=== PATIENT | female | born 1960 | race Caucasian/White ===

== ENCOUNTER 2022-07-13 11:14 | Inpatient (IN) | payer MEDICAID ==
[2022-07-13] MEDS ORDERED: Lactulose Soln 10 GM/15 ML 15 ML UD Cup PO ONE (13:46)
[2022-07-13] MEDS ORDERED: Sodium Chloride 0.9% 1,000 ML IV STA (16:18)
[2022-07-13] MEDS ORDERED: Sodium Chloride 0.9% 10 ML Syringe FLUSH PRN (16:18)
[2022-07-13] MEDS ORDERED: fentaNYL 100 MCG/2 ML SDV IVPUSH ONE (16:21)
[2022-07-13] MEDS ORDERED: Iopamidol 612 MG/ML 100 ML Bottle IV PRN (16:26)
[2022-07-13 16:50] LABS: ESTIMATED GFR 73 mL/min (>60)
[2022-07-13] MEDS: Sodium Chloride 0.9% 100 ML IV SCH ×2 (17:16→19:40)
[2022-07-13] MEDS ORDERED: HYDROmorphone 0.5 MG/0.5 ML Syringe IVPUSH ONE (17:45)
[2022-07-13] MEDS ORDERED: HYDROmorphone 1 MG/ML Syringe IVPUSH ONE (18:37)
[2022-07-13] MEDS ORDERED: Sodium Chloride 0.9% 100 ML IV SCH (19:15)
[2022-07-13] MEDS ORDERED: Iopamidol 755 Mg/ML 100 ML Bottle IV SCH (19:15)
[2022-07-13] MEDS ORDERED: Acetaminophen 325 MG Tab PO PRN (20:10)
[2022-07-13] MEDS ORDERED: oxyCODONE 5 MG Tab PO PRN (20:10)
[2022-07-13] MEDS ORDERED: Enoxaparin 30 MG/0.3 ML Syringe SUBCUT SCH (20:10)
[2022-07-13] MEDS ORDERED: Naloxone 0.4 MG/ML SDV IVPUSH PRN ×2 (20:10→20:23)
[2022-07-13] MEDS ORDERED: Ondansetron 4 MG Tab.DIS PO PRN (20:10)
[2022-07-13] MEDS ORDERED: Bisacodyl 5 MG Tab PO PRN (20:10)
[2022-07-13] MEDS ORDERED: fentaNYL/Normal Saline 600 MCG/30 ML PCA Vial IV PRN (20:10)
[2022-07-13] MEDS ORDERED: Ondansetron 4 MG/2 ML SDV IVPUSH PRN (20:23)
[2022-07-13] MEDS ORDERED: diphenhydrAMINE 50 MG/ML SDV IVPUSH PRN (20:23)
[2022-07-13] MEDS ORDERED: diphenhydrAMINE 25 MG Cap PO PRN (20:23)
[2022-07-13] MEDS: Sodium Chloride 0.9% 1,000 ML IV SCH (20:34)
[2022-07-13] MEDS: HYDROmorphone/Normal Saline 6 MG/30 ML PCA Vial IV PRN (20:56)
[2022-07-13] MEDS ORDERED: Apixaban 5 MG Tab PO SCH (21:00)
[2022-07-13] MEDS ORDERED: Aluminum Hydroxide/Magnesium Hydroxide/Simethicone Susp 30 ML Cup ONE (21:15)
[2022-07-13] MEDS ORDERED: Lidocaine 2% Viscous Solution 15 ML UD ONE (21:16)
[2022-07-13] MEDS ORDERED: diphenhydrAMINE 25 MG/10 ML Cup ONE (21:21)
[2022-07-13] MEDS: Apixaban 5 MG Tab PO SCH (21:49)
[2022-07-13] MEDS: Pantoprazole 40 MG Vial IV SCH (21:51)
[2022-07-13] MEDS: Lidocaine 2% 30 ML, Alum Hydrox/Mag Hydrox/Simeth 30 ML, diphenhydrAMINE 75 MG PO PRN ×3 (21:52)
[2022-07-14] MEDS: Sodium Chloride 0.9% 1,000 ML IV SCH (04:08)
[2022-07-14] MEDS: Pantoprazole 40 MG Vial IV SCH (08:59)
[2022-07-14] MEDS: Apixaban 5 MG Tab PO SCH (08:59)
[2022-07-14] MEDS ORDERED: Mineral Oil 133 ML BOTTLE RECTAL ONE (11:02)
[2022-07-14] MEDS ORDERED: Sodium Chloride 0.9% 1,000 ML IV SCH (11:30)
[2022-07-14] MEDS: HYDROmorphone/Normal Saline 6 MG/30 ML PCA Vial IV PRN (11:45)
[2022-07-14] MEDS ORDERED: Magnesium Citrate Solution 296 ML Bottle PO ONE (15:30)
[2022-07-14] MEDS: Lidocaine 2% 30 ML, Alum Hydrox/Mag Hydrox/Simeth 30 ML, diphenhydrAMINE 75 MG PO PRN ×3 (16:33)
[2022-07-14] MEDS: Ondansetron 4 MG/2 ML SDV IV PRN ×2 (16:41→20:58)
[2022-07-15] MEDS: HYDROmorphone/Normal Saline 6 MG/30 ML PCA Vial IV PRN (05:35)
[2022-07-15] MEDS: Pantoprazole 40 MG Tab.CR PO SCH (07:18)
[2022-07-15] MEDS ORDERED: Sodium Polystyrene Sulfonate 15 GM/60 ML Susp 60 ML Bot PO ONE (09:09)
[2022-07-15] MEDS: Ondansetron 4 MG/2 ML SDV IV PRN (09:41)
[2022-07-15] MEDS ORDERED: Na Phos,M-B/Na Phos,DI-B 60 ML, Mineral Oil 50 ML, Docusate Sodium 400 MG, Magnesium Ci... RECTAL ONE ×4 (10:00)
[2022-07-15] MEDS ORDERED: Prochlorperazine 10 MG Tab PO PRN (13:25)
[2022-07-15] MEDS ORDERED: Albumin Human 25 GM in Premix Bag 1 BAG IV ONE ×2 (14:00→15:15)
[2022-07-15] MEDS: Enoxaparin 60 MG/0.6 ML Syringe SUBCUT SCH (20:57)
[2022-07-16] MEDS: HYDROmorphone/Normal Saline 6 MG/30 ML PCA Vial IV PRN ×2 (06:55→15:42)
[2022-07-16] MEDS: Ondansetron 4 MG/2 ML SDV IV PRN (07:48)
[2022-07-16] MEDS: Pantoprazole 40 MG Tab.CR PO SCH (07:52)
[2022-07-16] MEDS: Enoxaparin 60 MG/0.6 ML Syringe SUBCUT SCH ×2 (08:00→20:56)
[2022-07-16] MEDS ORDERED: Bisacodyl 5 MG Tab PO ONE (08:30)
[2022-07-16] MEDS: Polyethylene Glycol 3350 Powder 17 GM Packet PO PRN (08:32)
[2022-07-16] MEDS ORDERED: MAGNESIUM CITRATE RECTAL ONE ×3 (10:00)
[2022-07-16] MEDS ORDERED: NA PHOS M B RECTAL ONE ×3 (10:00)
[2022-07-16] MEDS ORDERED: NA PHOS DI B RECTAL ONE ×3 (10:00)
[2022-07-16] MEDS ORDERED: MINERAL OIL RECTAL ONE ×3 (10:00)
[2022-07-16] MEDS ORDERED: Bisacodyl 10 MG Supp RECTAL ONE ×2 (13:30→20:00)
[2022-07-16] MEDS: Azithromycin 125 MG in Sodium Chloride 0.9% 100 ML IV SCH (18:30)
[2022-07-17 05:17] LABS: ESTIMATED GFR 84 mL/min (>60)
[2022-07-17] MEDS: Azithromycin 125 MG in Sodium Chloride 0.9% 100 ML IV SCH ×2 (05:25→17:41)
[2022-07-17] MEDS: Polyethylene Glycol 3350 Powder 17 GM Packet PO PRN (07:07)
[2022-07-17] MEDS: Pantoprazole 40 MG Tab.CR PO SCH (07:07)
[2022-07-17] MEDS: Enoxaparin 60 MG/0.6 ML Syringe SUBCUT SCH ×2 (08:05→21:09)
[2022-07-17] MEDS ORDERED: Bisacodyl 10 MG Supp RECTAL ONE (08:15)
[2022-07-17] MEDS: HYDROmorphone/Normal Saline 6 MG/30 ML PCA Vial IV PRN (08:59)
[2022-07-17] MEDS: Ondansetron 4 MG/2 ML SDV IV PRN ×2 (10:46→18:05)
[2022-07-17] MEDS ORDERED: Polyethylene Glycol 3350 Powder 119 GM Bottle PO ONE (11:30)
[2022-07-17] MEDS: Dextrose 5%-Lactated Ringers 1,000 ML IV SCH (18:46)
[2022-07-18] MEDS: HYDROmorphone/Normal Saline 6 MG/30 ML PCA Vial IV PRN ×3 (00:33→23:22)
[2022-07-18] MEDS ORDERED: Sodium Chloride 0.9% 10 ML Syringe FLUSH ONE (01:43)
[2022-07-18] MEDS ORDERED: Iopamidol 612 MG/ML 100 ML Bottle IV SCH (01:45)
[2022-07-18] MEDS ORDERED: Sodium Chloride 0.9% 50 ML IV SCH (01:45)
[2022-07-18] MEDS ORDERED: Diatrizoate Meglumine/Diatrizoate Sodium 37% 120 ML Bottle SCH (02:00)
[2022-07-18] MEDS: Ondansetron 4 MG/2 ML SDV IV PRN (04:44)
[2022-07-18] MEDS: Dextrose 5%-Lactated Ringers 1,000 ML IV SCH ×2 (04:51→12:47)
[2022-07-18] MEDS: Azithromycin 125 MG in Sodium Chloride 0.9% 100 ML IV SCH (05:52)
[2022-07-18] MEDS ORDERED: Ketamine 500 MG/5 ML MDV IV SCH ×3 (07:30→10:00)
[2022-07-18] MEDS: Pantoprazole 40 MG Tab.CR PO SCH (07:34)
[2022-07-18] MEDS ORDERED: Glycopyrrolate 0.2 MG/ML 5 ML MDV ONE (07:56)
[2022-07-18] MEDS ORDERED: Ondansetron 4 MG/2 ML SDV ONE (07:56)
[2022-07-18] MEDS ORDERED: Dexamethasone 4 MG/ML SDV ONE (07:56)
[2022-07-18] MEDS ORDERED: Propofol 200 MG/20 ML SDV ONE (07:56)
[2022-07-18] MEDS ORDERED: Succinylcholine 200 MG/10 ML MDV ONE (07:56)
[2022-07-18] MEDS ORDERED: Rocuronium 50 MG/5 ML Vial ONE (07:56)
[2022-07-18] MEDS ORDERED: Neostigmine Methylsulfate 1 MG/ML 5 ML Syringe ONE (07:56)
[2022-07-18] MEDS ORDERED: Meropenem 500 MG SDV ONE ×2 (09:17→10:45)
[2022-07-18] MEDS ORDERED: Lidocaine 1% with EPINEPHrine 1:100,000 50 ML MDV ONE (09:18)
[2022-07-18] MEDS ORDERED: Bupivacaine 0.5% 30 ML SDV ONE (09:18)
[2022-07-18] MEDS ORDERED: HYDROmorphone/Normal Saline 6 MG/30 ML PCA Vial IV PRN (09:21)
[2022-07-18] MEDS ORDERED: diphenhydrAMINE 50 MG/ML SDV IVPUSH PRN (09:21)
[2022-07-18] MEDS ORDERED: Naloxone 0.4 MG/ML SDV IVPUSH PRN (09:21)
[2022-07-18] MEDS ORDERED: Ondansetron 4 MG/2 ML SDV IVPUSH PRN (09:21)
[2022-07-18] MEDS ORDERED: diphenhydrAMINE 25 MG Cap PO PRN (09:21)
[2022-07-18] MEDS ORDERED: cefOXitin 2 GM in Sodium Chloride 0.9% 50 ML IV ONE (10:00)
[2022-07-18] MEDS ORDERED: Ketamine 15 MG in Sodium Chloride 0.9% 19.85 ML IV SCH (10:00)
[2022-07-18] MEDS: Meropenem 500 MG in Sodium Chloride 0.9% 50 ML IV SCH ×3 (11:31→23:44)
[2022-07-18] MEDS ORDERED: Scopolamine 1.5 MG Transdermal Patch ONE (12:30)
[2022-07-18] MEDS ORDERED: Dextrose 5%-Lactated Ringers 1,000 ML IV SCH (13:15)
[2022-07-18] MEDS: Enoxaparin 60 MG/0.6 ML Syringe SUBCUT SCH (21:12)
[2022-07-19 04:55] LABS: ESTIMATED GFR 98 mL/min (>60)
[2022-07-19] MEDS: Meropenem 500 MG in Sodium Chloride 0.9% 50 ML IV SCH ×3 (05:47→18:42)
[2022-07-19] MEDS ORDERED: Dextrose 5%-Lactated Ringers 1,000 ML IV SCH (07:20)
[2022-07-19] MEDS: Enoxaparin 60 MG/0.6 ML Syringe SUBCUT SCH ×2 (08:24→21:18)
[2022-07-19] MEDS: Pantoprazole 40 MG Tab.CR PO SCH (08:24)
[2022-07-19] MEDS: SCOPOLAMINE PATCH CHECK TOP SCH (08:55)
[2022-07-19] MEDS: 1: AA 5%/Calcium/D15W/Lytes 1,000 ML with MVI, Adult with Vitamin K 10 ML, Zinc/Copper/M IV SCH ×3 (11:02)
[2022-07-19] MEDS ORDERED: Alteplase 2 MG Vial IVPUSH ONE (12:00)
[2022-07-19] MEDS: HYDROmorphone/Normal Saline 6 MG/30 ML PCA Vial IV PRN (12:49)
[2022-07-19] MEDS: Insulin Lispro 100 Unit/ML 3 ML KwikPen SUBCUT SCH ×3 (13:17→21:17)
[2022-07-19] MEDS ORDERED: Fat Emulsion 100 ML IV ONE (16:00)
[2022-07-20] MEDS: Meropenem 500 MG in Sodium Chloride 0.9% 50 ML IV SCH ×6 (00:41→23:12)
[2022-07-20] MEDS: 1: AA 5%/Calcium/D15W/Lytes 1,000 ML with MVI, Adult with Vitamin K 10 ML, Zinc/Copper/M IV SCH ×6 (00:42→13:54)
[2022-07-20] MEDS: HYDROmorphone/Normal Saline 6 MG/30 ML PCA Vial IV PRN ×2 (00:50→15:57)
[2022-07-20] MEDS ORDERED: Lactated Ringers 1,000 ML IV SCH ×2 (07:00→12:00)
[2022-07-20] MEDS: Insulin Lispro 100 Unit/ML 3 ML KwikPen SUBCUT SCH ×4 (07:35→23:10)
[2022-07-20] MEDS: Pantoprazole 40 MG Tab.CR PO SCH (07:35)
[2022-07-20] MEDS: Ondansetron 4 MG/2 ML SDV IV PRN (08:24)
[2022-07-20] MEDS ORDERED: Insulin Glargine,Human Rec. Analog 100 Units/ML 3 ML Pen SUBCUT SCH (09:00)
[2022-07-20] MEDS: Enoxaparin 60 MG/0.6 ML Syringe SUBCUT SCH ×2 (09:57→23:12)
[2022-07-20] MEDS: SCOPOLAMINE PATCH CHECK TOP SCH (09:58)
[2022-07-20] MEDS ORDERED: 50% Dextrose in Water 50 ML Syringe IVPUSH PRN (11:44)
[2022-07-20] MEDS ORDERED: Glucagon,Human Recombinant 1 MG Vial IM PRN (11:44)
[2022-07-20] MEDS ORDERED: Insulin Lispro 100 Unit/ML 3 ML KwikPen SUBCUT ONE (12:15)
[2022-07-20] MEDS ORDERED: Fat Emulsion 100 ML IV ONE (16:00)
[2022-07-20] MEDS ORDERED: Apixaban 5 MG Tab PO SCH (21:00)
[2022-07-21] MEDS: 1: AA 5%/Calcium/D15W/Lytes 1,000 ML with MVI, Adult with Vitamin K 10 ML, Zinc/Copper/M IV SCH ×6 (03:19→16:22)
[2022-07-21] MEDS: Meropenem 500 MG in Sodium Chloride 0.9% 50 ML IV SCH (05:31)
[2022-07-21] MEDS: HYDROmorphone/Normal Saline 6 MG/30 ML PCA Vial IV PRN ×2 (06:54→21:37)
[2022-07-21] MEDS: Pantoprazole 40 MG Tab.CR PO SCH (07:44)
[2022-07-21] MEDS: Insulin Lispro 100 Unit/ML 3 ML KwikPen SUBCUT SCH ×4 (07:46→22:57)
[2022-07-21] MEDS: Ondansetron 4 MG/2 ML SDV IV PRN (07:48)
[2022-07-21] MEDS: Scopolamine 1.5 MG Transdermal Patch TOP SCH (09:45)
[2022-07-21] MEDS: Insulin Glargine,Human Rec. Analog 100 Units/ML 3 ML Pen SUBCUT SCH (09:45)
[2022-07-21] MEDS: Enoxaparin 60 MG/0.6 ML Syringe SUBCUT SCH ×2 (09:45→21:29)
[2022-07-21] MEDS ORDERED: Central Total Parenteral Nutrition Bag SCH (12:15)
[2022-07-21] MEDS ORDERED: FAT EMULSION IV ONE (16:00)
[2022-07-21] MEDS ORDERED: Fat Emulsion 100 ML IV ONE (16:00)
[2022-07-22] MEDS: 1: AA 5%/Calcium/D15W/Lytes 1,000 ML with MVI, Adult with Vitamin K 10 ML, Zinc/Copper/M IV SCH ×6 (05:58→19:28)
[2022-07-22 06:26] LABS: ESTIMATED GFR 102 mL/min (>60)
[2022-07-22] MEDS: Ondansetron 4 MG/2 ML SDV IV PRN ×4 (06:52→22:15)
[2022-07-22] MEDS: Insulin Lispro 100 Unit/ML 3 ML KwikPen SUBCUT SCH ×4 (08:24→21:07)
[2022-07-22] MEDS: Pantoprazole 40 MG Tab.CR PO SCH (08:24)
[2022-07-22] MEDS: Enoxaparin 60 MG/0.6 ML Syringe SUBCUT SCH ×2 (08:26→20:32)
[2022-07-22] MEDS: Insulin Glargine,Human Rec. Analog 100 Units/ML 3 ML Pen SUBCUT SCH (08:28)
[2022-07-22] MEDS ORDERED: Morphine 10 MG/0.5 ML Oral Syringe PO PRN (14:18)
[2022-07-22] MEDS ORDERED: Central Total Parenteral Nutrition Bag SCH (14:30)
[2022-07-22] MEDS: Morphine 30 MG Tab.ER PO SCH ×2 (14:48→22:04)
[2022-07-22] MEDS: Calcium Carbonate 500 MG Tab.Chew PO PRN (15:36)
[2022-07-22] MEDS ORDERED: Morphine 10 MG/0.5 ML Oral Syringe PO ONE (17:31)
[2022-07-22] MEDS: HYDROmorphone 1 MG/ML Syringe IVPUSH PRN (18:20)
[2022-07-22] MEDS: Prochlorperazine 10 MG/2 ML SDV IVPUSH PRN (20:27)
[2022-07-22] MEDS: Morphine 10 MG/0.5 ML Oral Syringe PO PRN (22:15)
[2022-07-23] MEDS: Calcium Carbonate 500 MG Tab.Chew PO PRN (00:09)
[2022-07-23] MEDS ORDERED: LORazepam ORAL Concentrate 1MG/0.5ML U/D PO PRN (00:10)
[2022-07-23] MEDS: HYDROmorphone 1 MG/ML Syringe IVPUSH PRN ×8 (00:25→22:36)
[2022-07-23] MEDS: Prochlorperazine 10 MG/2 ML SDV IVPUSH PRN (03:06)
[2022-07-23] MEDS: Morphine 10 MG/0.5 ML Oral Syringe PO PRN (03:16)
[2022-07-23] MEDS: Ondansetron 4 MG/2 ML SDV IV PRN (03:46)
[2022-07-23 05:21] LABS: ESTIMATED GFR 102 mL/min (>60)
[2022-07-23] MEDS ORDERED: Ondansetron 4 MG/2 ML SDV IVPUSH ONE (05:45)
[2022-07-23] MEDS: Morphine 30 MG Tab.ER PO SCH ×3 (05:49→21:55)
[2022-07-23] MEDS ORDERED: Iopamidol 612 MG/ML 100 ML Bottle IV PRN (07:08)
[2022-07-23] MEDS ORDERED: Sodium Chloride 0.9% 50 ML IV SCH (07:15)
[2022-07-23] MEDS ORDERED: Central Total Parenteral Nutrition Bag SCH (07:15)
[2022-07-23] MEDS: Insulin Lispro 100 Unit/ML 3 ML KwikPen SUBCUT SCH ×4 (08:35→21:54)
[2022-07-23] MEDS: Pantoprazole 40 MG Tab.CR PO SCH (08:35)
[2022-07-23] MEDS: 1: AA 5%/Calcium/D15W/Lytes 1,000 ML with MVI, Adult with Vitamin K 10 ML, Zinc/Copper/M IV SCH ×6 (09:17→21:59)
[2022-07-23] MEDS: Insulin Glargine,Human Rec. Analog 100 Units/ML 3 ML Pen SUBCUT SCH (09:29)
[2022-07-23] MEDS: Enoxaparin 60 MG/0.6 ML Syringe SUBCUT SCH ×2 (10:10→21:58)
[2022-07-23] MEDS ORDERED: Fat Emulsion 100 ML IV ONE (16:00)
[2022-07-24] MEDS: HYDROmorphone 1 MG/ML Syringe IVPUSH PRN ×4 (01:19→10:39)
[2022-07-24] MEDS: Phenol/Sodium Phenolate Spray 180 ML Bottle MUCMEM PRN ×3 (04:49→16:03)
[2022-07-24 04:58] LABS: ESTIMATED GFR 98 mL/min (>60)
[2022-07-24] MEDS: Morphine 10 MG/0.5 ML Oral Syringe PO PRN (05:35)
[2022-07-24] MEDS: Morphine 30 MG Tab.ER PO SCH ×3 (05:36→22:47)
[2022-07-24] MEDS: Insulin Lispro 100 Unit/ML 3 ML KwikPen SUBCUT SCH ×4 (07:46→21:31)
[2022-07-24] MEDS: Pantoprazole 40 MG Tab.CR PO SCH (08:22)
[2022-07-24] MEDS ORDERED: Central Total Parenteral Nutrition Bag SCH (08:30)
[2022-07-24] MEDS ORDERED: Clotrimazole 1% Vaginal Crm 45 GM Tube VAG SCH (09:00)
[2022-07-24] MEDS ORDERED: Miconazole 2% Crm 30 GM Tube TOP SCH (09:00)
[2022-07-24] MEDS ORDERED: Fluconazole/Normal Saline 100 MG in Premix Bag 1 BAG IV SCH (09:00)
[2022-07-24] MEDS: Enoxaparin 60 MG/0.6 ML Syringe SUBCUT SCH ×2 (09:30→20:58)
[2022-07-24] MEDS: Scopolamine 1.5 MG Transdermal Patch TOP SCH (09:31)
[2022-07-24] MEDS: Insulin Glargine,Human Rec. Analog 100 Units/ML 3 ML Pen SUBCUT SCH (10:06)
[2022-07-24] MEDS: Miconazole 2% Crm 30 GM Tube TOP SCH ×2 (10:39→20:58)
[2022-07-24] MEDS: Doxycycline 100 MG in Sodium Chloride 0.9% 100 ML IV SCH (13:04)
[2022-07-24] MEDS: HYDROmorphone 2 MG Tab PO PRN ×3 (14:03→20:52)
[2022-07-25] MEDS: Doxycycline 100 MG in Sodium Chloride 0.9% 100 ML IV SCH ×2 (01:30→13:37)
[2022-07-25] MEDS: HYDROmorphone 2 MG Tab PO PRN ×3 (01:41→08:56)
[2022-07-25] MEDS: Morphine 30 MG Tab.ER PO SCH (06:03)
[2022-07-25] MEDS: Pantoprazole 40 MG Tab.CR PO SCH (08:56)
[2022-07-25] MEDS: Enoxaparin 60 MG/0.6 ML Syringe SUBCUT SCH (09:06)
[2022-07-25] MEDS ORDERED: VERIFY SCOP PATCH TOP SCH (11:00)
[2022-07-25] MEDS: Insulin Lispro 100 Unit/ML 3 ML KwikPen SUBCUT SCH ×2 (11:09→11:28)
[2022-07-25] MEDS: Morphine 10 MG/0.5 ML Oral Syringe PO PRN (11:18)
[2022-07-25] MEDS: HYDROmorphone 1 MG/ML Syringe IVPUSH PRN (13:03)
[2022-07-25] MEDS: Ondansetron 4 MG/2 ML SDV IV PRN (13:03)
[2022-07-25] MEDS: Miconazole 2% Crm 30 GM Tube TOP SCH (13:37)
== END 2022-07-25 13:44 | disposition hospice, home (50) | DRG 329 ==
LOC: JP.ED 11:14 → JP.MS 18:57
PROVIDERS: ADMIT Hospitalist; ATTEND Hospitalist
PROC: 0D9670Z Drainage of Stomach with Drainage Device, Via Natural or Artificial Opening (ICD-10-PCS; principal; 2022-07-13)
PROC: 0W9G3ZZ Drainage of Peritoneal Cavity, Percutaneous Approach (ICD-10-PCS; 2022-07-15)
PROC: 0D1L0Z4 Bypass Transverse Colon to Cutaneous, Open Approach (ICD-10-PCS; 2022-07-18)
PROC: 02HV33Z Insertion of Infusion Device into Superior Vena Cava, Percutaneous Approach (ICD-10-PCS; 2022-07-18)
PROC: 3E0336Z Introduction of Nutritional Substance into Peripheral Vein, Percutaneous Approach (ICD-10-PCS; 2022-07-19)
DX: K56.600 Partial intestinal obstruction, unspecified as to cause (principal); I26.99 Other pulmonary embolism without acute cor pulmonale; C78.6 Secondary malignant neoplasm of retroperitoneum and peritoneum; C25.9 Malignant neoplasm of pancreas, unspecified; C78.7 Secondary malignant neoplasm of liver and intrahepatic bile duct; J90 Pleural effusion, not elsewhere classified; E87.1 Hypo-osmolality and hyponatremia; R18.0 Malignant ascites; K56.7 Ileus, unspecified; E11.649 Type 2 diabetes mellitus with hypoglycemia without coma; K59.03 Drug induced constipation; D69.6 Thrombocytopenia, unspecified; G89.3 Neoplasm related pain (acute) (chronic); R10.9 Unspecified abdominal pain; E87.5 Hyperkalemia; Z79.899 Other long term (current) drug therapy; Z79.84 Long term (current) use of oral hypoglycemic drugs; Z90.49 Acquired absence of other specified parts of digestive tract; Z86.19 Personal history of other infectious and parasitic diseases
CPT/HCPCS: 36415; 36569; 51702; 71250; 71250-26; 71275; 74018; 74018-26; 74021; 74021-26; 74177; 76998; 80048; 80053; 82947; 83605; 83735; 83880; 84100; 84478; 85025; 85027; 85610; 96361; 96374; 96375; 96376; 97116-GP; 97163-GP; 97530-GP; 99284-25; A9270-GY; C1751; C9113; J0171; J0330; J0456; J0694; J0780; J1100; J1170; J1450; J1642; J1650; J1815; J1815-GY; J2185; J2405; J2704; J2710; J2795; J2997; J3010; J3490; J7030; J7120; J7121; P9047; Q0164; Q9963; Q9967